=== PATIENT | male | born 1985 ===

== ENCOUNTER 2023-06-14 11:53 | Emergency (ER) | payer SELFPAY ==
[~2023-06-14] VITALS: Ht 182.9 cm; Wt 112.0 kg
[2023-06-14 11:54] VITALS: BP 150/95; TEMP 98.7; O2SAT 97
== END 2023-06-14 13:25 | disposition left against medical advice (07) ==
LOC: M ED 11:53
DX: M54.9 Dorsalgia, unspecified (principal); Z53.21 Procedure and treatment not carried out due to patient leaving prior to being seen by health care provider